=== PATIENT | female | born 1965 | race Caucasian/White ===

== ENCOUNTER 2018-04-13 07:16 | Day surgery (SDC) | payer OTHER ==
--- NOTE | 2018-04-04 16:37 | HP ---
CC: Bushra Wilkins MD at [facility] * PREOPERATIVE HISTORY AND PHYSICAL: DATE OF ADMISSION/SURGERY: 04/13/18 This patient is scheduled for same-day surgery admission by Dr. Gray on Monday , 04/13/18. DATE OF PREOPERATIVE HISTORY AND PHYSICAL EXAMINATION: 04/04/18. ATTENDING SURGEON: Era Gray MD * (dictated by Melinda Ortiz NP) CHIEF COMPLAINT: Abnormal left mammogram. HISTORY OF PRESENT ILLNESS: The patient is a 52-year-old female, recently evaluated by Dr. Gray for abnormal left breast mammogram. The patient had not noticed any changes in her breast, but during a recent mammogram, an abnormality was identified in the left breast and biopsied under ultrasound guidance. The pathology was benign, but she was advised to have a complete surgical excision of the lesion. She denies any current breast problems; in the past, she had a benign right breast mammographic abnormality biopsied. She denies any breast pain. She denies any family history of breast or ovarian cancer. Menarche was at age 13, menopause at age 50; first delivery at age 20 and she did not breast-feed; the patient took control pills for about 15 years starting in her late 20s. She has never had radiation to the chest. Dr. Gray has examined the patient and reviewed the findings with the patient and has recommended needle localization and excision of the mammographic abnormality of the left breast. She described the nature of the surgical procedure, the rationale for the procedure, the expected results of surgery, and the relevant risks and benefits. Today, I reviewed expected postoperative care and recovery. The patient has had a chance to ask questions and stated that she understands the information and is satisfied with the answers given to her questions. She will sign surgical consent on the day of surgery. PAST MEDICAL HISTORY: Significant for hypertension. PAST SURGICAL HISTORY: Breast augmentation with bilateral implants; tubal ligation; open cholecystectomy; tummy tuck; and lithotripsy. MEDICATIONS: 1. Atenolol 50 mg 1 tablet p.o. daily in the morning. 2. Hydrochlorothiazide 25 mg 1 tablet p.o. daily in the morning. ALLERGIES: No known drug allergies. 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 She is a nonsmoker. She drinks alcohol very occasionally and denies the use of other substances. FAMILY HISTORY: No known breast or ovarian cancer. The patient's father has a history of diabetes and kidney disease. The patient's mother has esophageal cancer and is . No known anesthesia complications, bleeding tendencies , or clotting disorders. REVIEW OF SYSTEMS: Constitutional: No fevers, chills, excessive fatigue, or weight loss. Endocrine: No diabetes or thyroid disease. Hematologic: No easy bruising or bleeding; no history of blood transfusions. Breasts: As described in history of present illness. Respiratory: No dyspnea on exertion. No chronic cough. Cardiovascular: No anginal chest pain or palpitations. Gastrointestinal: No nausea, vomiting, diarrhea, or constipation. No change in bowel habits. Genitourinary: History of kidney stones. No current dysuria. Musculoskeletal: No complaints of back or joint pain. Neurologic: No headache or blurred vision. No areas of focal weakness. General: No previous anesthesia complications, no history of deep vein thrombosis or pulmonary embolism and no unusual bleeding tendencies. PHYSICAL EXAMINATION GENERAL SURVEY: The patient is a 52-year-old female, well developed, obese, in no acute distress. VITAL SIGNS: Height 67.75 inches, weight 236 pounds, body mass index 36. Blood pressure 118/70, pulse 74 and regular, respiratory rate 18, temperature 97.9 tympanic. HEENT: Benign. NECK: Supple. No cervical lymphadenopathy. No thyromegaly. No supraclavicular lymphadenopathy. BREASTS: Symmetrical; implant scars are well healed. No skin changes. Breasts are normal to palpation. No discrete masses noted in the left breast. No discrete masses noted in the right breast. Nipples, no discharge; normal to inspection. There is no palpable axillary lymphadenopathy. LUNGS: Breath sounds bilaterally clear and equal. HEART: Regular rate and rhythm. No murmurs or rubs appreciated. ABDOMEN: Active bowel sounds. Multiple well healed surgical scars. Soft, obese, nondistended, nontender throughout. No obvious masses, organomegaly, or evidence of ventral hernia. PELVIC: Exam deferred. RECTAL: Exam deferred. BACK: No CVA tenderness. EXTREMITIES: Warm without edema or skin ulceration. NEUROLOGIC: Alert and oriented x3. Steady gait. SKIN: Warm, dry, intact. IMPRESSION: Abnormal mammographic finding, left breast. PLAN: Same-day surgery admission to Dr. Gray's service on 04/318 for needle localization and excision of mammographic abnormality, left breast. MARLENE ORTIZ, ROLLWAY WORKER [id number]/[facility] #: [id number] EDMOND
[~2018-04-13 07:16] MED LIST: Buffered Lidocaine 0.9% SYRIN* 5 ML/SYR SYRINGE INTRADERM ONE; Dexamethasone IV* 4 MG/ML 1 ML (4 MG) IV SLOW PU ONE; Famotidine IV* 10 MG/ML 2 ML (20 mg) IV ONE
[2018-04-13] MEDS ORDERED: Dexamethasone IV* 4 MG/ML 1 ML (4 MG) ONE (07:38)
[2018-04-13] MEDS ORDERED: Famotidine IV* 10 MG/ML 2 ML (20 mg) ONE (07:38)
[2018-04-13] MEDS ORDERED: Lidocaine 2.5%/Prilocain 2.5%* 5 GM TUBE ONE (07:38)
[2018-04-13] MEDS ORDERED: ceFAZolin 2 GM PREMIX (*) 2 GM/50 ML BAG IVPB ONE (07:39)
[2018-04-13] MEDS ORDERED: Bupivacaine 0.5% PF 10 ML VIAL INJ ONE (08:12)
[2018-04-13] MEDS ORDERED: Lidocaine 1% MPF wEPI 200,000* 30 ML SDV ONE (08:12)
[2018-04-13] MEDS ORDERED: Lidocaine 1% INJ* 10 MG/ML 30 ML SDV ONE (08:12)
[2018-04-13] MEDS ORDERED: Bupivacaine 0.25% W/EPI* 10 ML SDV ONE (08:14)
[2018-04-13] MEDS ORDERED: fentaNYL* 50 MCG/ML 2 ML VIAL (100 MCG VIAL) IV PRN (09:45)
[2018-04-13] MEDS ORDERED: Naloxone* 0.4 MG/ML 1 ML VIAL IV PRN (09:45)
[2018-04-13] MEDS ORDERED: oxyCODONE/Acetamin 5/325 MG* TAB PO PRN (09:45)
[2018-04-13] MEDS ORDERED: HYDROcodone/ACETAMIN 5-325 MG* 1 TAB PO PRN ×3 (09:45→11:38)
[2018-04-13] MEDS ORDERED: PROCHLORPERAZINE INJ 5 MG/ML 2 ML VIAL IV PRN (09:45)
[2018-04-13] MEDS ORDERED: fentaNYL* 50 MCG/ML 2 ML VIAL (100 MCG VIAL) ONE (09:54)
[2018-04-13] MEDS ORDERED: Midazolam* 1 MG/ML 5 ML VIAL (5 MG) ONE (09:55)
[2018-04-13] MEDS ORDERED: Lidocaine 2% PF * 5 ML VIAL ONE (10:16)
[2018-04-13] MEDS ORDERED: Propofol* 10 MG/ML 20 ML BTL IV PUSH ONE (10:16)
[2018-04-13] MEDS ORDERED: Ondansetron INJ* 2 MG/ML VIAL ONE (10:55)
--- NOTE | 2018-04-13 11:38 | BRIEFOPN ---
Brief Operative Note - Surgery Procedures: Procedures BILATERAL BREAST IMPLANT (02/01/00) SIZE REDUCT PLASTIC OP (02/01/00) THYROID FIELD ASPIRATION (10/10/13) 04/13/18 Op Note Pre-op dx: left breast mammographic abnormality Post-op dx: same Procedure: needle localization excision of left breast mammographic abnormality Surgeon: Isaac Asst: None Anesth: local-MAC EBL: 5 cc Complications: none SCDs on during surgery Abx: given pre-op Pt. tolerated procedure well and was transferred to in a stable condition. [facility]
[2018-04-13 12:17] VITALS: BP 120/77
--- NOTE | 2018-04-13 14:11 | RAD ---
Indication: Indeterminate lesion left breast. Using usual aseptic technique and under ultrasound guidance the previously identified nodule with radiopaque marker was localized. Using a 5 cm Kopan's needle and under ultrasound guidance the guidewire was placed adjacent to the lesion and radiopaque marker. A diagnostic mammogram was then performed to show close proximity of the radiopaque marker to the guidewire. Surgical excision demonstrates the resected specimen demonstrates the radiopaque marker within adjacent density. IMPRESSION: Successful ultrasound-guided localization of a radiopaque marker and a hypoechoic density in the left breast. Specimen radiograph demonstrates the localized area to BE within the specimen.
--- NOTE | 2018-04-13 23:10 | OP ---
CC: [facility]; Bushra Wilkins MD OPERATIVE REPORT: DATE OF OPERATION: 04/13/18 DATE OF : 65 SURGEON: Era Gray MD DUCT LAYER HELPER: There was no office assistant receptionist for this case. PRE-OP DIAGNOSIS: Left breast mammographic abnormality. POST-OP DIAGNOSIS: Left breast mammographic abnormality. OPERATIVE PROCEDURE: Needle localization and excision of left breast mammographic abnormality. INDICATIONS: Ms. Rich is a 52-year-old woman who was recently identified as having an abnormality i n the breast, which was biopsied and the pathology raised the suspicion of a phyllodes tumor and wide r excision was advised. DESCRIPTION OF PROCEDURE: She underwent needle localization on the morning of surgery and then was b rought to the operating room. She was placed on the OR table in the supine position and given IV sed ation. The left breast was prepped and draped in the usual sterile fashion taking care not to dislod ge the localizing wire. Then after infiltrating with local anesthetic, a curvilinear elliptical inci ganesh encompassing the wire was made. Subcutaneous tissue was then divided with electrocautery taking care to avoid the implant and tissue from around the wire was excised. This was marked in the usual fashion and handed off as a specimen. Hemostasis was assured with electrocautery and when the report came back that the specimen contained the abnormality, closure was accomplished. This was done with 3- 0 Vicryl in the subcutaneous layer and the skin was closed with 4-0 Prolene in a subcuticular fas hion. Prior to complete closure, some additional local was instilled into the wound. Steri-Strips a nd a dry sterile dressing were applied. All sponge and instrument counts were correct. The patient t olerated the procedure well and was transferred to Recovery in a stable condition. [id number]/[facility] #: [id number]
== END 2018-04-13 12:40 | disposition home or self-care (01) ==
LOC: SDS 07:16
PROVIDERS: ATTEND Surgery
DX: N60.32 Fibrosclerosis of left breast (principal); R92.8 Other abnormal and inconclusive findings on diagnostic imaging of breast; I10 Essential (primary) hypertension; E04.1 Nontoxic single thyroid nodule
CPT/HCPCS: 77061; 88307; A9270-GY; G0279; J0690; J1100; J2001; J2250; J2405; J2704; J3010

== ENCOUNTER 2019-06-01 09:31 | Emergency (ER) | payer OTHER ==
[2019-06-01 09:51] VITALS: BP 150/78
--- NOTE | 2019-06-01 10:04 | UC ---
Throat Pain/Nasal David HPI - HPI Summary HPI Summary: Pt presents with c/o worsening cough, chest and nasal congestion, right ear pain , malaise, chills, subjective fever, and most recently "loss of voice" X 7 days. Pt has been taking OTC medications with no improvement in symptoms. - History of Current Complaint Chief Complaint: UCRespiratory Stated Complaint: COUGH, CONGESTION Time Seen by Provider: 06/01/19 09:44 Hx Obtained From: Patient Hx Last Menstrual Period: CURRENT ?: No Onset/Duration: Gradual Onset, Lasting Days, Still Present, Worse Since - onset Severity: Moderate Pain Intensity: 0 Cough: Nonproductive Associated Signs & Symptoms: Positive: Dysphagia, Sinus Discomfort, Nasal Discharge - Epiglottits Risk Factors Epiglottis Risk Factors: Negative - Allergies/Home Medications Allergies/Adverse Reactions: Allergies Allergy/AdvReac Type Severity Reaction Status Date / Time No Known Allergies Allergy Verified 06/01/19 09:40 Home Medications: Home Medications Atenolol TAB* [Tenormin TAB* 25 MG] 25 mg PO DAILY 06/01/19 [History Confirmed 06/01/19] PMH/Surg Hx/FS Hx/Imm Hx Previously Healthy: Yes - Surgical History Surgical History: Yes Surgery Procedure, Year, and Place: CHOLECYSTECTOMY 2011 [facility]. LITHOTRIPSY 1996 [facility]. SURGICAL REMOVAL OF KIDNEY STONE, TUBAL LIGATION 1997 [facility] - Family History Known Family History: Positive: Hypertension - Social History Occupation: Employed Full-time Lives: With Family Alcohol Use: Rare Alcohol Amount: 1-2 drinks every 6 months Substance Use Type: None Smoking Status (MU): Never Smoked Tobacco Have You Smoked in the Last Year: No - Immunization History Most Recent Influenza Vaccination: none 2017 Vaccination Up to Date: Yes Review of Systems All Other Systems Reviewed And Are Negative: Yes Constitutional: Positive: Fever - subjective, Chills, Fatigue Skin: Positive: Negative Eyes: Positive: Negative ENT: Positive: Sore Throat, Ear Ache - right, Sinus Congestion, Other - "loss of voice" Respiratory: Positive: Cough Cardiovascular: Positive: Negative Genitourinary: Positive: Negative Motor: Positive: Negative Neurovascular: Positive: Negative Musculoskeletal: Positive: Myalgia Neurological: Positive: Negative Psychological: Positive: Negative Is Patient Immunocompromised?: No Physical Exam Triage Information Reviewed: Yes Appearance: Ill-Appearing Vital Signs: Initial Vital Signs Temp 97.6 F 06/01/19 09:44 Pulse 77 06/01/19 09:44 Resp 17 06/01/19 09:44 BP 150/78 06/01/19 09:44 Pulse Ox 97 06/01/19 09:44 Vital Signs Reviewed: Yes Eye Exam: Normal ENT: Positive: Nasal congestion, Other - hoarse voice Dental Exam: Normal Neck exam: Normal Respiratory Exam: Normal Respiratory: Positive: Normal breath sounds Cardiovascular Exam: Normal Musculoskeletal Exam: Normal Neurological Exam: Normal Psychological Exam: Normal Skin Exam: Normal Throat Pain/Nasal Course/Dx - Differential Dx/Diagnosis Differential Diagnosis/HQI/PQRI: Laryngitis, Otitis Media, URI Provider Diagnosis: Otitis media of right ear, Loss of voice, Cough Discharge ED - Sign-Out/Discharge Documenting (check all that apply): Patient Departure All imaging exams completed and their final reports reviewed: No Studies - Discharge Plan Condition: Stable Disposition: HOME Prescriptions: Amoxicillin PO (*) [Amoxicillin 500 MG CAP*] 500 mg PO Q12H #20 cap Benzonatate CAP* [Tessalon 100 MG CAP*] 200 mg PO Q8H PRN #30 cap PRN Reason: Cough predniSONE TAB* [Deltasone 10 MG TAB*] 30 mg PO DAILY #12 tab Patient Education Materials: Laryngitis (ED), Ear Infection (ED), Acute Cough ( ED) Referrals: Bushra Wilkins MD [Primary Care Provider] - If Needed - Billing Disposition and Condition Condition: STABLE Disposition: Home
== END 2019-06-01 10:13 | disposition home or self-care (01) ==
LOC: UCCORT 09:31
DX: H66.91 Otitis media, unspecified, right ear (principal); R49.1 Aphonia; R05 Cough
CPT/HCPCS: 99212; G0463